=== PATIENT | female | born 1995 | race Caucasian/White ===

== ENCOUNTER 2016-04-03 11:30 | Emergency (ER) | payer BC ==
[2016-04-03 12:26] VITALS: BP 118/73
--- NOTE | 2016-04-03 12:58 | UC ---
Eye Complaint HPI - HPI Summary HPI Summary: Has had nasal congestion, BRICE, ST for "a few days." Yesterday woke up with one red eye, today both eyes are red and irritated. Had crusted discharge in her lashes when she woke up. Denies fever or trouble breathing. - History of Current Complaint Chief Complaint: UCHeadache Stated Complaint: HEADACHE Time Seen by Provider: 04/03/16 12:23 Hx Obtained From: Patient Hx Last Menstrual Period: 03/20/16 ?: No Onset/Duration: Gradual Onset, Lasting Days Timing: Constant Severity Initially: Mild Severity Currently: Mild Location of Injury: Conjunctiva Character: Dull Aggravating Factor(s): Nothing Alleviating Factor(s): Nothing Associated Signs And Symptoms: Positive: Drainage (Clear) - Allergies/Home Medications Allergies/Adverse Reactions: Allergies Allergy/AdvReac Type Severity Reaction Status Date / Time No Known Drug Allergy Allergy See Comment Verified 04/21/15 16:29 Home Medications: Home Medications Desogestrel & Ethinyl Estradio [Juleber 0.15-30 mg-Mcg] 1 tab PO 04/03/16 [ History] PMH/Surg Hx/FS Hx/Imm Hx Endocrine History Of: Denies: Diabetes, Thyroid Disease Cardiovascular History Of: Denies: Cardiac Disorders, Hypertension Respiratory History Of: Denies: COPD, Asthma GI/ History Of: Denies: Ulcer Other History Of: Negative For: Anticoagulant Therapy - Surgical History Surgical History: None - Family History Known Family History: Positive: Hypertension - Social History Occupation: Employed Part-time Alcohol Use: Occasionally Substance Use Type: None Smoking Status (MU): Never Smoked Tobacco Review of Systems Constitutional: Negative Skin: Negative Eyes: Eye Redness ENT: Negative Respiratory: Negative Cardiovascular: Negative Gastrointestinal: Negative Genitourinary: Negative Motor: Negative Neurovascular: Negative Musculoskeletal: Negative Neurological: Negative Psychological: Negative All Other Systems Reviewed And Are Negative: Yes Physical Exam Triage Information Reviewed: Yes Appearance: Well-Appearing, No Pain Distress, Well-Nourished Vital Signs: Initial Vital Signs Temp 99.3 F 04/03/16 12:20 Pulse 82 04/03/16 12:20 Resp 18 04/03/16 12:20 BP 118/73 04/03/16 12:20 Pulse Ox 100 04/03/16 12:20 Vital Signs Reviewed: Yes Eye Exam: Other - PERRL Eyes: Positive: Conjunctiva Inflamed. Negative: Discharge ENT: Positive: Hearing grossly normal, Pharynx normal, Nasal congestion, TMs normal Dental Exam: Normal Neck exam: Normal Neck: Positive: Supple, Nontender, No Lymphadenopathy Respiratory Exam: Normal Respiratory: Positive: Chest non-tender, Lungs clear, Normal breath sounds, No respiratory distress, No accessory muscle use Cardiovascular Exam: Normal Cardiovascular: Positive: RRR, No Murmur Musculoskeletal Exam: Normal Neurological Exam: Normal Psychological Exam: Normal Skin Exam: Normal Eye Complaint Course/Dx - Differential Dx/Diagnosis Provider Diagnoses: Bilat conjunctivitis Discharge - Discharge Plan Condition: Stable Disposition: HOME Prescriptions: Ciprofloxacin 0.3% OPTH.SOTO* [Cipro 0.3% Opth*] 2 drop BOTH EYES QID #5 ml Patient Education Materials: Conjunctivitis (ED) Referrals: Be Trevino MD [Primary Care Provider] - If Needed
== END 2016-04-03 12:59 | disposition home or self-care (01) ==
LOC: UCEAST 11:30
DX: H10.33 Unspecified acute conjunctivitis, bilateral (principal)
CPT/HCPCS: 99212; G0463

== ENCOUNTER 2016-04-09 11:42 | Emergency (ER) | payer BC ==
[2016-04-09 13:08] VITALS: BP 114/72
--- NOTE | 2016-04-09 13:24 | UC ---
Complaint Female HPI - HPI Summary HPI Summary: pain with urination, frequency and burning for 1 week--similar sx 2 months ago and [facility], no vaginal discard, fevers,or flank pain - History Of Current Complaint Chief Complaint: UCGU Stated Complaint: UTI COMPLAINT Time Seen by Provider: 04/09/16 13:08 Hx Obtained From: Patient Hx Last Menstrual Period: 03/20/16 ?: No Onset/Duration: Gradual Onset, Lasting Weeks - 1, Still Present Timing: Constant Severity Initially: Mild Severity Currently: Mild Character: Burning Aggravating Factor(s): Urination Alleviating Factor(s): Nothing Associated Signs And Symptoms: Positive: Negative - Allergies/Home Medications Allergies/Adverse Reactions: Allergies Allergy/AdvReac Type Severity Reaction Status Date / Time No Known Drug Allergy Allergy See Comment Verified 04/09/16 13:08 PMH/Surg Hx/FS Hx/Imm Hx Previously Healthy: Yes Endocrine History Of: Denies: Diabetes, Thyroid Disease Cardiovascular History Of: Denies: Cardiac Disorders, Hypertension Respiratory History Of: Denies: COPD, Asthma GI/ History Of: Denies: Ulcer Other History Of: Negative For: Anticoagulant Therapy - Surgical History Surgical History: None - Family History Known Family History: Positive: Hypertension - Social History Occupation: Employed Full-time Lives: With Family Alcohol Use: None Substance Use Type: None Smoking Status (MU): Never Smoked Tobacco Review of Systems Constitutional: Negative Skin: Negative Eyes: Negative ENT: Negative Respiratory: Negative Cardiovascular: Negative Gastrointestinal: Negative Genitourinary: Dysuria, Frequency, Urgency Motor: Negative Neurovascular: Negative Musculoskeletal: Negative Neurological: Negative Psychological: Negative All Other Systems Reviewed And Are Negative: Yes Physical Exam Triage Information Reviewed: Yes Appearance: Well-Appearing, No Pain Distress, Well-Nourished Vital Signs: Initial Vital Signs Temp 97.3 F 04/09/16 13:03 Pulse 85 04/09/16 13:03 Resp 16 04/09/16 13:03 BP 114/72 04/09/16 13:03 Pulse Ox 100 04/09/16 13:03 Vital Signs Reviewed: Yes Eye Exam: Normal Eyes: Positive: Conjunctiva Clear ENT Exam: Normal ENT: Positive: Normal ENT inspection, Hearing grossly normal, TMs normal. Negative: Nasal congestion, Nasal drainage, Tonsillar swelling, Tonsillar exudate, Trismus, Muffled/hoarse voice Dental Exam: Normal Neck exam: Normal Neck: Positive: Supple, Nontender Respiratory Exam: Normal Respiratory: Positive: Chest non-tender, Lungs clear, Normal breath sounds, No respiratory distress, No accessory muscle use Cardiovascular Exam: Normal Cardiovascular: Positive: RRR, No Murmur, Pulses Normal, Brisk Capillary Refill Abdominal Exam: Normal Abdomen Description: Positive: Nontender, No Organomegaly, Soft. Negative: CVA Tenderness (R), CVA Tenderness (L) Bowel Sounds: Positive: Present Musculoskeletal Exam: Normal Musculoskeletal: Positive: Strength Intact, ROM Intact, No Edema Neurological Exam: Normal Neurological: Positive: Alert, Muscle Tone Normal Psychological Exam: Normal Skin Exam: Normal Complaint Female Dx - Course Course Of Treatment: bactrim, increase fluids, culture urine, [facility] - Differential Dx/Diagnosis Differential Diagnosis/HQI/PQRI: Pelvic Inflammatory Disease, , Renal Colic, Ureteral Stone, Urinary Tract Infection Provider Diagnoses: UTI Discharge - Discharge Plan Condition: Stable Disposition: HOME Prescriptions: Sulfamethox/Trimethoprim DS* [Bactrim DS 800/160 TAB*] 1 tab PO BID #10 tab Patient Education Materials: Urinary Tract Infection in Women (ED) Referrals: Be Trevino MD [Primary Care Provider] - If Needed
== END 2016-04-09 13:46 | disposition home or self-care (01) ==
LOC: UCEAST 11:42
DX: N39.0 Urinary tract infection, site not specified (principal)
CPT/HCPCS: 81002; 81025; 87077; 87086; 99212; G0463

== ENCOUNTER 2016-06-02 17:26 | Emergency (ER) | payer BC ==
[2016-06-02 17:35] VITALS: BP 101/65
[2016-06-02] MEDS ORDERED: Sulfamethox/Trimethoprim DS 800/160* TAB PO ONE (18:26)
--- NOTE | 2016-06-02 18:32 | UC ---
Complaint Female HPI - HPI Summary HPI Summary: This is an otherwise healthy female who presented with complaints of urinary frequency, dysuria and back pain x 3 days. Patient states this is her 3rd UTI in 6 months. She is unsure if other urine samples were sent for culture. She reports symptoms have improved each time with antibiotics. Denies vaginal discharge, itching, or rash. She is sexually active denies concern for STDs. - History Of Current Complaint Chief Complaint: UCGU Stated Complaint: POSS UTI Hx Last Menstrual Period: 05/20/16 - Allergies/Home Medications Allergies/Adverse Reactions: Allergies Allergy/AdvReac Type Severity Reaction Status Date / Time No Known Drug Allergy Allergy See Comment Verified 04/09/16 13:08 PMH/Surg Hx/FS Hx/Imm Hx Endocrine History Of: Denies: Diabetes, Thyroid Disease Cardiovascular History Of: Denies: Cardiac Disorders, Hypertension Respiratory History Of: Denies: COPD, Asthma GI/ History Of: Denies: Ulcer Other History Of: Negative For: Anticoagulant Therapy - Surgical History Surgical History: None - Family History Known Family History: Positive: Hypertension - Social History Alcohol Use: None Substance Use Type: None Smoking Status (MU): Never Smoked Tobacco Review of Systems Constitutional: Negative Skin: Negative Eyes: Negative ENT: Negative Respiratory: Negative Cardiovascular: Negative Gastrointestinal: Negative Genitourinary: Dysuria, Frequency, Urgency Motor: Negative Neurovascular: Negative Musculoskeletal: Negative Neurological: Negative Psychological: Negative All Other Systems Reviewed And Are Negative: Yes Physical Exam Triage Information Reviewed: Yes Appearance: Well-Appearing Vital Signs: Initial Vital Signs Temp 97.9 F 06/02/16 17:31 Pulse 89 06/02/16 17:31 Resp 16 06/02/16 17:31 BP 101/65 06/02/16 17:31 Pulse Ox 99 06/02/16 17:31 Vital Signs Reviewed: Yes Respiratory: Positive: Lungs clear. Negative: Crackles, Rhonchi, Wheezing Cardiovascular: Positive: RRR, No Murmur Abdomen Description: Positive: Nontender, CVA Tenderness (R), CVA Tenderness (L) Bowel Sounds: Positive: Present Diagnostics - Laboratory Diagnostic Studies Completed/Ordered: UA - 3+ LE, 2+blood, 3+ protein Complaint Female Dx - Course Course Of Treatment: This is an otherwise healthy 20 yo female who presents with classic UTI symptoms. Will treat empirically. Will send urine for culture. Recommend urology consult due to the frequency of her infections. Patient declines STD testing - Differential Dx/Diagnosis Differential Diagnosis/HQI/PQRI: Cervicitis, Sexually Transmitted Disease, Urinary Tract Infection Provider Diagnoses: UTI Discharge - Discharge Plan Condition: Stable Disposition: HOME Prescriptions: Sulfamethox/Trimethoprim DS* [Bactrim DS 800/160 TAB*] 1 tab PO BID #14 tab Patient Education Materials: Urinary Tract Infection in Women (ED) Referrals: Be Trevino MD [Primary Care Provider] - If Needed Oscar Unger MD [Medical Doctor] - (please call to schedule an appointment) Additional Instructions: Activity: No restrictions Instructions: 1. Please take antibiotics as instructed 2. Call the urologist listed above for an appointment regarding the frequency of your UTIs
== END 2016-06-02 18:33 | disposition home or self-care (01) ==
LOC: UCEAST 17:26
DX: N39.0 Urinary tract infection, site not specified (principal); Z87.440 Personal history of urinary (tract) infections
CPT/HCPCS: 81003; 87077; 87086; 99212; A9270-GY; G0463

== ENCOUNTER 2016-09-21 18:32 | Emergency (ER) | payer BC ==
[2016-09-21 18:44] VITALS: BP 120/72
--- NOTE | 2016-09-21 19:15 | UC ---
Lower Extremity/Ankle HPI - HPI Summary HPI Summary: The patient comes in today for: 1. Left big toe pain: Onset: 5 days. Palliative/provocative: Stubbing her toe made it worse. Quality: Throbbing. Region: Left big toe. Severity: 10 Time: Constant. Associated symptoms: Drainage: Yellow Previous treatment: None. * - History of Current Complaint Chief Complaint: UCLowerExtremity Stated Complaint: INGROWN TOENAIL Time Seen by Provider: 09/21/16 19:06 Hx Obtained From: Patient Hx Last Menstrual Period: 08/27/16 - Allergies/Home Medications Allergies/Adverse Reactions: Allergies Allergy/AdvReac Type Severity Reaction Status Date / Time No Known Drug Allergy Allergy See Comment Verified 04/09/16 13:08 PMH/Surg Hx/FS Hx/Imm Hx Previously Healthy: No - Family planning/BCP Other History Of: Negative For: Anticoagulant Therapy - Surgical History Surgical History: None - Family History Known Family History: Positive: Hypertension Negative: Diabetes - Social History Occupation: Employed Full-time Alcohol Use: None Substance Use Type: None Smoking Status (MU): Never Smoked Tobacco Review of Systems Constitutional: Negative Skin: Negative Eyes: Negative ENT: Negative Respiratory: Negative Cardiovascular: Negative Gastrointestinal: Negative Genitourinary: Negative All Other Systems Reviewed And Are Negative: Yes Physical Exam Triage Information Reviewed: Yes Appearance: Well-Appearing, No Pain Distress, Well-Nourished Vital Signs: Initial Vital Signs Temp 98 F 09/21/16 18:39 Pulse 76 09/21/16 18:39 Resp 18 09/21/16 18:39 BP 120/72 09/21/16 18:39 Pulse Ox 100 09/21/16 18:39 Vital Signs Reviewed: Yes Eyes: Positive: Conjunctiva Clear. Negative: Discharge ENT: Positive: Hearing grossly normal. Negative: Pharyngeal erythema, Nasal congestion, Nasal drainage, TM bulging, TM dull, TM red, Tonsillar swelling, Tonsillar exudate Dental: Negative: Gross Decay/Caries @, Dental Fracture @ Neck: Positive: Supple, Nontender, No Lymphadenopathy. Negative: Nuchal Rigidity Respiratory: Positive: Lungs clear, No respiratory distress, No accessory muscle use. Negative: Crackles, Wheezing Cardiovascular: Positive: RRR, No Murmur Abdomen Description: Positive: Nontender, No Organomegaly, Soft. Negative: Distended, Guarding Musculoskeletal: Positive: Strength Intact, ROM Intact, No Edema Neurological: Positive: Alert, Muscle Tone Normal Psychological: Positive: Age Appropriate Behavior, Consolable Skin: Positive: Other - Left big toe: Along the lateral border of the distal big toe nail, there is mild edema, and erythema, There is about a 3 mm granulation mass, with minimal yellow discharge.. Negative: rashes, breakdown Lower Extremity Course/Dx - Course Course Of Treatment: Patient was told of her having an infected ingrown toe nail of the left big toe. She was encouraged to hot soak it, take antibiotics and see podiatry. - Differential Dx/Diagnosis Differential Diagnosis/HQI/PQRI: Cellulitis, Gout, Sprain Provider Diagnoses: Left big toe ingrown nail. Discharge - Discharge Plan Condition: Stable Disposition: HOME Patient Education Materials: Ingrown Nail (ED) Referrals: Be Trevino MD [Primary Care Provider] - As Soon As Possible
== END 2016-09-21 19:30 | disposition home or self-care (01) ==
LOC: UCEAST 18:32
DX: L60.0 Ingrowing nail (principal)
CPT/HCPCS: 99212; G0463

== ENCOUNTER 2018-07-01 08:06 | Emergency (ER) | payer BC ==
[2018-07-01 08:31] VITALS: BP 135/81
--- NOTE | 2018-07-01 09:29 | UC ---
Throat Pain/Nasal Jos HPI - HPI Summary HPI Summary: started with sore throat 5 days ago , sore throat is better now, having neck pain , fatigue, body aches, feverish chest pain and tightness with sob chest pain is interment , may be caused by stress lasting up to 30 min, some radiation to her right arm , nothing makes it better or worse - History of Current Complaint Chief Complaint: UCRespiratory Stated Complaint: BRICE,STIFF NECK,EAR COMPLAINT Time Seen by Provider: 07/01/18 08:18 Hx Obtained From: Patient, Family/Extension Service Specialist In Charge Hx Last Menstrual Period: 06/02/18 ?: No Onset/Duration: Sudden Onset, Lasting Days - 5, Still Present Pain Intensity: 4 Pain Scale Used: 0-10 Numeric Cough: None Associated Signs & Symptoms: Negative: Dysphagia, FB Sensation, Drooling, Wheezing, Hoarseness, Sinus Discomfort, Nasal Discharge, Fever, Vomiting, Rash - Allergies/Home Medications Allergies/Adverse Reactions: Allergies Allergy/AdvReac Type Severity Reaction Status Date / Time No Known Allergies Allergy Verified 07/01/18 08:32 Home Medications: Home Medications D-Methorphan/PE/Acetaminophen [Vicks Dayquil Cold & Flu] 2 cap PO DAILY [History Confirmed 07/01/18] Dm/Acetaminophen/Doxylamine [Vicks Nyquil Cold & Flu N 15-6.25-325 mg] 1 cap PO DAILY 07/01/18 [History Confirmed 07/01/18] O C 2 tab PO DAILY 07/01/18 [History Confirmed 07/01/18] PMH/Surg Hx/FS Hx/Imm Hx Previously Healthy: Yes Other History Of: Negative For: Anticoagulant Therapy - Surgical History Surgical History: None - Family History Known Family History: Positive: Hypertension Negative: Diabetes - Social History Alcohol Use: Occasionally Substance Use Type: Excessive Caffeine Substance Use Comment - Amount & Last Used: 3 cups latte daily Smoking Status (MU): Never Smoked Tobacco Review of Systems All Other Systems Reviewed And Are Negative: Yes Constitutional: Positive: Negative Skin: Positive: Negative Eyes: Positive: Negative ENT: Positive: Sore Throat Respiratory: Positive: Negative Cardiovascular: Positive: Chest Pain Musculoskeletal: Positive: Arthralgia, Myalgia. Negative: Calf Tenderness Is Patient Immunocompromised?: No Physical Exam Triage Information Reviewed: Yes Appearance: Well-Appearing, No Pain Distress, Well-Nourished Vital Signs: Initial Vital Signs Temp 98.8 F 07/01/18 08:19 Pulse 94 07/01/18 08:19 Resp 22 07/01/18 08:19 BP 135/81 07/01/18 08:19 Pulse Ox 100 07/01/18 08:19 Vital Signs Reviewed: Yes Eye Exam: Normal Eyes: Positive: Conjunctiva Clear ENT: Positive: Normal ENT inspection, Hearing grossly normal, Pharynx normal, TMs normal. Negative: Pharyngeal erythema, Nasal congestion, Nasal drainage, TM bulging, TM dull, TM red, Tonsillar swelling, Tonsillar exudate Neck: Positive: Supple, Tenderness @, Enlarged Nodes @ Respiratory: Positive: Chest non-tender, Lungs clear, Normal breath sounds Cardiovascular: Positive: RRR, No Murmur, Pulses Normal Abdomen Description: Positive: Nontender, Soft. Negative: CVA Tenderness (R), CVA Tenderness (L), Distended, Guarding Bowel Sounds: Positive: Present Skin Exam: Normal Throat Pain/Nasal Course/Dx - Differential Dx/Diagnosis Provider Diagnosis: Viral illness Discharge - Sign-Out/Discharge Documenting (check all that apply): Patient Departure All imaging exams completed and their final reports reviewed: No Studies - Discharge Plan Condition: Stable Disposition: HOME Patient Education Materials: Chest Pain (ED), Viral Syndrome (ED) Referrals: No Primary Care Phys,NOPCP [Primary Care Provider] - 7 Days Additional Instructions: normal vitals, normal exam , normal EKG symptoms most likely due to a viral illness will check for Cascade and CBC cont. with rest, increase fluid, take Tylenol as needed for pain and fever follow up with your pcp in one week if not improving - Billing Disposition and Condition Condition: STABLE Disposition: Home
[2018-07-01 11:44] LABS: Hematocrit 42 % (33-41); Hemoglobin 14.1 g/dL (12.0-16.0); Mean Corpuscular HGB Conc 34 g/dL (31-36); Mean Corpuscular Hemoglobin 31 pg (27-31); Mean Corpuscular Volume 90 fL (80-97); Mean Platelet Volume 8.7 fL (7.4-10.4); Platelet Count 206 10^3/uL (150-450); Red Blood Count 4.61 10^6 /uL (3.70-4.87); Red Cell Distribution Width 13 % (10.5-15); White Blood Count 4.5 10^3/uL (3.5-10.8)
[2018-07-01 12:56] LABS: Immature Granulocytes 4 % (0-9); Lymphocytes % 16 %; Monocytes % 14 %; Neutrophil % 59 %; Variant Lymph % 6 % (0-6)
[2018-07-01 12:58] LABS: ABS Basophils 0.45 10^3/ul (0-0.2); ABS Neutrophils 2.8 10^3/ul (1.5-7.7)
== END 2018-07-01 09:11 | disposition home or self-care (01) ==
LOC: UCCORT 08:06
DX: B34.9 Viral infection, unspecified (principal); R07.89 Other chest pain
CPT/HCPCS: 36415; 85025; 86308; 93005; 99211; G0463

== ENCOUNTER 2018-09-21 11:42 | Emergency (ER) | payer BC ==
--- NOTE | 2018-09-21 12:14 | ED ---
Abdominal Pain/Female - HPI Summary HPI Summary: 22 year old F presenting to [facility] accompanied by boyfriend with a chief complaint of intermittent lower abdominal pain described as cramping since two weeks ago, worse since this morning after riding a horse. The patient rates the pain 8/10 in severity. Symptoms aggravated by nothing. Symptoms alleviated by nothing. Patient reports nausea. Patient states that it feels like bad period cramps but she is not on her period. LNMP 08/31/18. - History of Current Complaint Chief Complaint: EDAbdPain Stated Complaint: LOWER ABD PAIN Time Seen by Provider: 09/21/18 12:01 Hx Obtained From: Patient Hx Last Menstrual Period: 08/31/18 ?: No Onset/Duration: Lasting Weeks - 2, Still Present, Worse Since - this morning Timing: Intermittent Episode Lasting Severity Currently: Severe Pain Intensity: 8 Pain Scale Used: 0-10 Numeric Location: Other - lower Radiates: No Aggravating Factor(s): Nothing Alleviating Factor(s): Nothing Associated Signs and Symptoms: Positive: Nausea Allergies/Adverse Reactions: Allergies Allergy/AdvReac Type Severity Reaction Status Date / Time No Known Allergies Allergy Verified 09/21/18 12:55 Home Medications: Home Medications Norgestimate-Ethinyl Estradiol [Caroline 0.25-0.035 mg Tablet] 1 tab PO DAILY [History Confirmed 09/21/18] PMH/Surg Hx/FS Hx/Imm Hx Previously Healthy: Yes Endocrine/Hematology History: Denies: Hx Anticoagulant Therapy, Hx Diabetes, Hx Thyroid Disease Cardiovascular History: Denies: Hx Hypertension Respiratory History: Denies: Hx Asthma, Hx Chronic Obstructive Pulmonary Disease (COPD) GI History: Denies: Hx Ulcer - Surgical History Surgical History: None Surgery Procedure, Year, and Place: none Infectious Disease History: No Infectious Disease History: Denies: Hx Clostridium Difficile, Hx Hepatitis, Hx Human Immunodeficiency Virus (HIV), Hx of Known/Suspected MRSA, Hx Shingles, Hx Tuberculosis, Hx Known/ Suspected VRE, Hx Known/Suspected VRSA, History Other Infectious Disease, Traveled Outside the [place] in Last 30 Days - Family History Known Family History: Positive: Hypertension Negative: Diabetes - Social History Alcohol Use: Occasionally Hx Substance Use: Yes Substance Use Type: Reports: Excessive Caffeine Substance Use Comment - Amount & Last Used: 3 cups latte daily Hx Tobacco Use: No Smoking Status (MU): Never Smoked Tobacco Review of Systems Negative: Fever Positive: Abdominal Pain, Nausea All Other Systems Reviewed And Are Negative: Yes Physical Exam - Summary Physical Exam Summary: Appearance: The patient is well-nourished in no acute distress and in no acute pain. Skin: The skin is warm and dry and skin color reflects adequate perfusion. HEENT: The head is normocephalic and atraumatic. The pupils are equal and reactive. The conjunctivae are clear and without drainage. Nares are patent and without drainage. Mouth reveals moist mucous membranes and the throat is without erythema and exudate. The external ears are intact. The ear canals are patent and without drainage. The tympanic membranes are intact. Neck: The neck is supple with full range of motion and non-tender. There are no carotid bruits. There is no neck vein distension. Respiratory: Chest is non-tender. Lungs are clear to auscultation and breath sounds are symmetrical and equal. Cardiovascular: Heart is regular rate and rhythm. There is no murmur or rub auscultated. There is no peripheral edema and pulses are symmetrical and equal. Abdomen: Tenderness in the RLQ and LLQ with more tenderness in the RLQ than the LLQ, mild rebound tenderness, non-tender epigastrium and RUQ Musculoskeletal: There is no back tenderness noted. Extremities are non-tender with full range of motion. There is good capillary refill. There is no peripheral edema or calf tenderness elicited. Neurological: Patient is alert and oriented to person, place and time. The patient has symmetrical motor strength in all four extremities. Cranial nerves are grossly intact. Deep tendon reflexes are symmetrical and equal in all four extremities. Psychiatric: The patient has an appropriate affect and does not exhibit any anxiety or depression Triage Information Reviewed: Yes Vital Signs On Initial Exam: Initial Vitals Temp Pulse Resp BP Pulse Ox 98.7 F 82 18 123/78 99 09/21/18 11:42 09/21/18 11:42 09/21/18 11:42 09/21/18 11:42 09/21/18 11:42 Vital Signs Reviewed: Yes Diagnostics - Vital Signs Vital Signs Temp Pulse Resp BP Pulse Ox 09/21/18 11:42 98.7 F 82 18 123/78 99 - Laboratory Result Diagrams: 09/21/18 12:33 06/30/19 12:33 Lab Statement: Any lab studies that have been ordered have been reviewed, and results considered in the medical decision making process. - Additional Comments Diagnostic Additional Comments: Pelvis ultrasound shows, per radiologist, Small amount of free fluid in the pelvis. Involuting left ovarian cyst measuring up to 2.3 cm. ED physician has reviewed this report. Appendix ultrasound shows, per radiologist, Appendix is not visualized. ED physician has reviewed this report. Abdominal Pain Fem Course/Dx - Course Course Of Treatment: Ms. Collins has been having some mild pelvic pain on and off for a week or so. Today she was riding a horse and when she got up she had sudden severe pain. She comes into the emergency department in obvious pain distress but nontoxic with stable vitals. She was tender diffusely in the lower abdomen with mild rebound but the right lower quadrant was the worst. Labs are unremarkable and ultrasound revealed an involuting left ovarian cyst and some free fluid. She gradually improved here on her own and I think this is likely explanation that fits with the history and physical of a ruptured ovarian cyst. There is still the possibility of an early appendicitis but this is unlikely. - Diagnoses Provider Diagnoses: Pelvic pain, Ruptured ovarian cyst Discharge - Sign-Out/Discharge Documenting (check all that apply): Patient Departure - Discharge Patient Received Moderate/Deep Sedation with Procedure: No - Discharge Plan Condition: Stable Disposition: HOME Patient Education Materials: Ruptured Ovarian Cyst (ED) Referrals: Karla Blanco MD [Medical Doctor] - 2 Days Additional Instructions: Follow up with Dr. Blanco in 2 days. Return to the Emergency Department for new or worsening symptoms. - Billing Disposition and Condition Condition: STABLE Disposition: Home - Attestation Statements Document Initiated by Mauro: Yes Documenting Scribe: Wanda Angel Provider For Whom Mauro is Documenting (Include Credential): Garrett Saldaña MD Scribe Attestation: I, Wanda Angel, scribed for Garrett Saldaña MD on 09/21/18 at 1719. Scribe Documentation Reviewed: Yes Provider Attestation: The documentation as recorded by the Wanda montero accurately reflects the service I personally performed and the decisions made by me, Garrett Saldaña MD Status of Scribe Document: Viewed
[2018-09-21] MEDS ORDERED: Ketorolac INJ* 30 MG/ML 1 ML VIAL IV PUSH ONE (12:20)
[2018-09-21 12:43] LABS: ABS Basophils 0.1 10^3/ul (0-0.2); ABS Monocytes 0.5 10^3/ul (0-0.8); ABS Neutrophils 5.2 10^3/ul (1.5-7.7); Eosinophil % 0.6 %; Hematocrit 39 % (35-47); Hemoglobin 13.6 g/dL (12.0-16.0); Lymphocyte % 25.5 %; Mean Corpuscular HGB Conc 35 g/dL (31-36); Mean Corpuscular Hemoglobin 30 pg (27-31); Mean Corpuscular Volume 87 fL (80-97); Platelet Count 245 10^3/uL (150-450); Red Blood Count 4.51 10^6 /uL (3.70-4.87); Red Cell Distribution Width 13 % (10-15); White Blood Count 7.7 10^3/uL (3.5-10.8)
[2018-09-21 13:01] LABS: ALT 10 U/L (7-52); AST 15 U/L (13-39); Albumin/Globulin Ratio 1.4 (1-3); Alkaline Phosphatase 48 U/L (34-104); Anion Gap 7 mmol/L (2-11); BUN/Creatinine Ratio 19.7 (8-20); Blood Urea Nitrogen 12 mg/dL (6-24); C Reactive Protein < 1.00 mg/L (<8.01); CO2 Carbon Dioxide 25 mmol/L (22-32); Calcium 9.4 mg/dL (8.6-10.3); Chloride 106 mmol/L (101-111); EGFR African American 149.8 (>60); EGFR Non-African American 123.8 (>60); Globulin 2.8 g/dL (2-4); Glucose 90 mg/dL (70-100); Potassium 3.9 mmol/L (3.5-5.0); Sodium 138 mmol/L (135-145); Total Protein 6.8 g/dL (6.4-8.9)
[2018-09-21 13:07] LABS: HCG Pregnancy < 0.60 mIU/mL
[2018-09-21 14:06] LABS: Urine Appearance Cloudy; Urine Bilirubin Negative (Negative); Urine Blood Negative (Negative); Urine Color Yellow; Urine Glucose Negative (Negative); Urine Ketones Negative (Negative); Urine Nitrite Negative (Negative); Urine Protein Negative (Negative); Urine Specific Gravity 1.012 (1.010-1.030); Urine Urobilinogen Negative (Negative)
[2018-09-21 14:42] VITALS: BP 114/61
== END 2018-09-21 14:42 | disposition home or self-care (01) ==
LOC: ED 11:42
DX: N83.202 Unspecified ovarian cyst, left side (principal); R10.2 Pelvic and perineal pain
CPT/HCPCS: 36415; 76705; 76856; 80053; 81003; 83605; 84702; 85025; 86140; 96374; 99282; J1885